=== PATIENT | male | born 1985 | race African-American/Black ===

== ENCOUNTER 2024-08-27 05:27 | Day surgery (SDC) | payer OTHER ==
[2024-08-26 13:21] VITALS: BMI 26.4
[2024-08-27 08:49] VITALS: TEMP 98
[2024-08-27 09:18] VITALS: BP 112/80; PULSE 88; RESP 19
== END 2024-08-27 09:29 | disposition home or self-care (01) ==
LOC: JASU-ENDO 05:27
PROVIDERS: ATTEND Internal Medicine Gastroenterology
PROC: 0DB78ZX Excision of Stomach, Pylorus, Via Natural or Artificial Opening Endoscopic, Diagnostic (ICD-10-PCS; 2024-08-27)
PROC: 0DB68ZX Excision of Stomach, Via Natural or Artificial Opening Endoscopic, Diagnostic (ICD-10-PCS; 2024-08-27)
PROC: 0DB68ZX Excision of Stomach, Via Natural or Artificial Opening Endoscopic, Diagnostic (ICD-10-PCS; principal; 2024-08-27 08:00)
DX: K44.9 Diaphragmatic hernia without obstruction or gangrene (principal); K29.50 Unspecified chronic gastritis without bleeding; B96.81 Helicobacter pylori [H. pylori] as the cause of diseases classified elsewhere; K31.7 Polyp of stomach and duodenum
CPT/HCPCS: 88305-TC; 88341-TC; 88342-TC